=== PATIENT | female | born 1990 | race Caucasian/White ===

== ENCOUNTER 2023-10-27 09:24 | Emergency (ER) | payer BC, OTHER ==
[2023-10-27] MEDS: Sodium Chloride 0.9% 1,000 ML IV SCH (09:38)
[2023-10-27] MEDS: Ketorolac 30 MG/ML SDV IVPUSH ONE (09:39)
[2023-10-27] MEDS: Ondansetron 4 MG/2 ML SDV IVPUSH ONE (09:42)
[2023-10-27] MEDS: Sodium Chloride 0.9% 10 ML Syringe FLUSH PRN (09:42)
[2023-10-27 09:44] LABS: BASOPHILS ABSOLUTE AUTO 0.01 K/uL (0.00-0.20); BASOPHILS PERCENT AUTO 0.1 % (0.0-2.0); EOSINOPHILS ABSOLUTE AUTO 0.06 K/uL (0.00-0.50); EOSINOPHILS PERCENT AUTO 0.4 % (0.0-5.0); HEMATOCRIT 42.4 % (34.0-46.0); HEMOGLOBIN 14.7 g/dL (11.7-15.5); LYMPHOCYTES ABSOLUTE AUTO 0.45 K/uL (0.50-3.50); MEAN CORPUSCULAR HEMOGLOBIN 29.9 pg (28.2-33.3); MEAN CORPUSCULAR HGB CONC 34.7 g/dL (31.7-36.0); MEAN CORPUSCULAR VOLUME 86.4 fL (84.0-98.0); MONOCYTES ABSOLUTE AUTO 0.55 K/uL (0.00-1.00); MONOCYTES PERCENT AUTO 3.6 % (2.0-14.0); NEUTROPHILS ABSOLUTE AUTO 14.08 K/uL (1.40-7.00); NEUTROPHILS PERCENT AUTO 92.9 % (45.0-80.0); PLATELET COUNT,PLT 270 K/uL (150-350); RED BLOOD CELL COUNT 4.91 M/uL (3.77-5.09); RED CELL DISTRIBUTION WIDTH 12.8 % (11.2-14.1); WHITE BLOOD CELL COUNT,WBC 15.2 K/uL (4.0-10.2)
[2023-10-27 10:08] LABS: ALBUMIN 3.6 g/dL (3.4-5.0); BILIRUBIN TOTAL 1.3 mg/dL (0.2-1.0); CALCIUM 8.4 mg/dL (8.5-10.1); CREATININE 0.83 mg/dL (0.51-1.17); EST CRCL DRUG DOSING (CG) 81.69 mL/min; POTASSIUM,K 3.8 mmol/L (3.5-5.1)
[2023-10-27 10:35] VITALS: BP 115/76; PULSE 99
== END 2023-10-27 11:00 | disposition home or self-care (01) ==
LOC: LL.ED 09:24
DX: B17.9 Acute viral hepatitis, unspecified (principal); Z90.49 Acquired absence of other specified parts of digestive tract; Z79.899 Other long term (current) drug therapy
CPT/HCPCS: 36415; 80053; 83690; 85025; 96361; 96374; 96375; 99283; 99284-25; J1885; J2405; J3490; J7030

== ENCOUNTER 2025-07-28 20:31 | Emergency (ER) | payer BC ==
[2025-07-28 20:40] LABS: BASOPHILS ABSOLUTE AUTO 0.04 K/uL (0.00-0.20); BASOPHILS PERCENT AUTO 0.4 % (0.0-2.0); EOSINOPHILS ABSOLUTE AUTO 0.19 K/uL (0.00-0.50); EOSINOPHILS PERCENT AUTO 1.8 % (0.0-5.0); IMMATURE GRAN ABSOLUTE AUTO 0.02 10^3/uL (0.00-0.04); IMMATURE GRAN PERCENT AUTO 0.2 % (0.0-0.4); LYMPHOCYTES ABSOLUTE AUTO 3.30 K/uL (0.50-3.50); LYMPHOCYTES PERCENT AUTO 30.4 % (10.0-50.0); MONOCYTES ABSOLUTE AUTO 0.63 K/uL (0.00-1.00); MONOCYTES PERCENT AUTO 5.8 % (2.0-14.0); NEUTROPHILS ABSOLUTE AUTO 6.67 K/uL (1.40-7.00); NEUTROPHILS PERCENT AUTO 61.4 % (45.0-80.0); PLATELET COUNT,PLT 328 K/uL (150-350); RED BLOOD CELL COUNT 4.36 M/uL (3.77-5.09); RED CELL DISTRIBUTION WIDTH 11.9 % (11.2-14.1); WHITE BLOOD CELL COUNT,WBC 10.9 K/uL (4.0-10.2)
[2025-07-28] MEDS: Ondansetron 4 MG/2 ML SDV IVPUSH ONE (20:41)
[2025-07-28] MEDS: Sodium Chloride 0.9% 10 ML Syringe FLUSH PRN (20:42)
[2025-07-28 20:44] LABS: APPEARANCE,URINE TURBID; GLUCOSE,URINE NEGATIVE (NEGATIVE); OCCULT BLOOD,URINE LARGE (NEGATIVE)
[2025-07-28 21:00] LABS: INR 1.0 (0.9-1.1); PTT,PARTIAL THROMBOPLSTIN TIME 27.2 SEC (23.8-34.4)
[2025-07-28 21:01] LABS: ALANINE AMINOTRANSFERASE,ALT 94 U/L (12-78); ASPARTATE AMNIOTRANSFERASE,AST 26 U/L (15-37); BILIRUBIN TOTAL 0.5 mg/dL (0.2-1.0); BLOOD UREA NITROGEN,BUN 18 mg/dL (7-18); CARBON DIOXIDE,CO2 27.6 mmol/L (21.0-32.0); CHLORIDE,CL 107 mmol/L (98-107); CREATININE 0.82 mg/dL (0.51-1.17); GLUCOSE RANDOM 70 mg/dL (70-99); POTASSIUM,K 3.6 mmol/L (3.5-5.1); PROTEIN TOTAL,TP 7.5 g/dL (6.4-8.2); SODIUM,NA 146 mmol/L (136-145)
[2025-07-28 21:02] LABS: ESTIMATED GFR 94 mL/min (>=60)
[2025-07-28 21:04] LABS: LACTIC ACID 0.7 mmol/L (0.4-2.0)
[2025-07-28] MEDS: Lactated Ringers 1,000 ML IV SCH (21:12)
[2025-07-28] MEDS: Ketorolac 15 MG/ML SDV IVPUSH ONE (22:00)
[2025-07-28] MEDS: Take Home: Acetaminophen/HYDROcodone 325-10 MG, 5 Tab Pack PO ONE (22:20)
[2025-07-28 23:20] VITALS: BP 121/82; PULSE 84
== END 2025-07-29 07:00 | disposition home or self-care (01) ==
LOC: LL.ED 20:31
DX: N13.2 Hydronephrosis with renal and ureteral calculous obstruction (principal); E66.9 Obesity, unspecified; Z79.899 Other long term (current) drug therapy; Z88.8 Allergy status to other drugs, medicaments and biological substances; Z90.710 Acquired absence of both cervix and uterus; Z90.49 Acquired absence of other specified parts of digestive tract
CPT/HCPCS: 36415; 74176; 80053; 81001; 83605; 83690; 83735; 85025; 85610; 85730; 86140; 96361; 96374; 96375; 99284; A9270; J1885; J2405; J7120; J1171